=== PATIENT | male | born 1960 | race Two or more races ===

== ENCOUNTER 2017-01-20 19:47 | Emergency (ER) | payer OTHER ==
[~2017-01-20] VITALS: Ht 167.6 cm; Wt 154.2 kg
[2017-01-20 19:47] VITALS: BP 150/80
[~2017-01-20 19:47] MED LIST: ASPI1TAB; DICL75TA5; DULO60CA45
[2017-01-20] MEDS ORDERED: ALBUTEROL FS 2.5 MG/3 ML VIAL.NEB ONE (20:53)
[2017-01-20] MEDS ORDERED: IPRATROPIUM NEB FS 0.5 MG/2.5 ML AMPUL.NEB ONE (20:53)
--- NOTE | 2017-01-20 20:55 | NUR ---
ONGOING BREATHING TREATMENT BY RT WARREN.
[2017-01-20] MEDS ORDERED: predniSONE 20 MG TABLET ONE (20:57)
[2017-01-20] MEDS ORDERED: ALBUTEROL FS 2.5 MG/3 ML VIAL.NEB CONTNEB ONE (21:00)
[2017-01-20] MEDS ORDERED: predniSONE 20 MG TABLET PO ONE (21:00)
[2017-01-20] MEDS ORDERED: IPRATROPIUM NEB FS 0.5 MG/2.5 ML AMPUL.NEB NEB ONE (21:00)
== END 2017-01-20 21:40 | disposition home or self-care (01) ==
LOC: ER 19:48
DX: R05 Cough (principal); E11.9 Type 2 diabetes mellitus without complications; E66.01 Morbid (severe) obesity due to excess calories; F17.210 Nicotine dependence, cigarettes, uncomplicated; F32.9 Major depressive disorder, single episode, unspecified; F41.9 Anxiety disorder, unspecified; I10 Essential (primary) hypertension; Z79.82 Long term (current) use of aspirin
CPT/HCPCS: 71010; 94640 ×2; 99284; A4606; J7512; Z7610

== ENCOUNTER 2017-09-18 00:54 | Emergency (ER) | payer OTHER ==
[~2017-09-18] VITALS: Ht 165.1 cm; Wt 204.1 kg
[~2017-09-18 00:54] MED LIST changes: +ASPI-1165
[2017-09-18 01:30] VITALS: BP 126/70
--- NOTE | 2017-09-18 02:10 | NUR ---
RADIOLOGY AT BEDSIDE FOR EVAL.
[2017-09-18] MEDS ORDERED: oxyCODONE/APAP (5/325 MG) 1 UDTAB TABLET ONE (02:25)
[2017-09-18] MEDS ORDERED: oxyCODONE/APAP (5/325 MG) 1 UDTAB TABLET PO ONE (02:30)
== END 2017-09-18 02:52 | disposition home or self-care (01) ==
LOC: ER 00:54
DX: M25.562 Pain in left knee (principal); S80.02XA Contusion of left knee, initial encounter; S80.01XA Contusion of right knee, initial encounter; S20.212A Contusion of left front wall of thorax, initial encounter; I10 Essential (primary) hypertension; E11.9 Type 2 diabetes mellitus without complications; F41.9 Anxiety disorder, unspecified; F32.9 Major depressive disorder, single episode, unspecified; G89.29 Other chronic pain; Z79.82 Long term (current) use of aspirin; W18.39XA Other fall on same level, initial encounter; Y93.E1 Activity, personal bathing and showering; Y92.89 Other specified places as the place of occurrence of the external cause; Y99.8 Other external cause status
CPT/HCPCS: 71045-TC; 73564-TC; 82962-TC; A4606; Z7610

== ENCOUNTER 2017-10-02 23:19 | Emergency (ER) | payer OTHER ==
[~2017-10-02] VITALS: Ht 165.1 cm; Wt 204.1 kg
[2017-10-02 23:50] VITALS: BP 124/66
--- NOTE | 2017-10-03 01:31 | NUR ---
Patient does not wish to proceed with medical care recommended by Dr. BONDS ). Patient given information related to possible complications, up to and including , which could occur as a result of leaving the hospital at this time. Patient verbalizes understanding of risks involved due to leaving against medical advice. Patient has signed AMA form. VSS UPON DISCHARGE
== END 2017-10-03 01:50 | disposition home or self-care (01) ==
LOC: ER 23:19
DX: S22.42XA Multiple fractures of ribs, left side, initial encounter for closed fracture (principal); I10 Essential (primary) hypertension; G89.29 Other chronic pain; F41.9 Anxiety disorder, unspecified; F32.9 Major depressive disorder, single episode, unspecified; E11.9 Type 2 diabetes mellitus without complications; Z79.82 Long term (current) use of aspirin; W18.2XXA Fall in (into) shower or empty bathtub, initial encounter; Y93.89 Activity, other specified; Y92.89 Other specified places as the place of occurrence of the external cause; Y99.8 Other external cause status
CPT/HCPCS: 71100; 99284; A4606; Z7610

== ENCOUNTER 2017-10-15 18:07 | Emergency (ER) | payer OTHER ==
[~2017-10-15] VITALS: Ht 170.2 cm; Wt 153.3 kg
--- NOTE | 2017-10-15 18:12 | NUR ---
AAOX3, CAME TO ER BED 01 VIA CANE C/O LEFT RIB CAGE PAIN S/P SLIPPED AND FELL THIS AM TO HIS LEFT SIDE, -KO. SKIN IS WARM AND DRY. AWAITING MD FOR EVAL.
[2017-10-15] MEDS ORDERED: IBUPROFEN 400 MG TABLET PO ONE (18:30)
[2017-10-15] MEDS ORDERED: IBUPROFEN 400 MG TABLET ONE (19:07)
[2017-10-15 19:24] VITALS: BP 145/90
--- NOTE | 2017-10-15 19:24 | NUR ---
PT OK TO DISCHARGE PER DR ARROYO. Patient discharged to home in stable condition. Written and verbal after care instructions given. Patient verbalizes understanding of instruction.Patient is awake and alert to self, day, and place. PT ambulatory with a steady gait
== END 2017-10-15 19:25 | disposition home or self-care (01) ==
LOC: ER 18:10
DX: S22.42XA Multiple fractures of ribs, left side, initial encounter for closed fracture (principal); R07.89 Other chest pain; I10 Essential (primary) hypertension; E11.9 Type 2 diabetes mellitus without complications; F41.9 Anxiety disorder, unspecified; G89.29 Other chronic pain; F32.9 Major depressive disorder, single episode, unspecified; F17.200 Nicotine dependence, unspecified, uncomplicated; Z79.82 Long term (current) use of aspirin; W01.10XA Fall on same level from slipping, tripping and stumbling with subsequent striking against unspecified object, initial encounter; Y93.89 Activity, other specified; Y92.89 Other specified places as the place of occurrence of the external cause; Y99.8 Other external cause status
CPT/HCPCS: 71046; A4606; Z7610

== ENCOUNTER 2018-10-31 01:16 | Inpatient (IN) | payer OTHER ==
[~2018-10-31] VITALS: Ht 170.2 cm; Wt 155.1 kg
--- NOTE | 2018-10-31 01:50 | NUR ---
BIBSELF FROM HOME. TO ER BED. AAOX4. AMBULATORY WITH A CANE. NO RESP DISTRESS NOTED, BREATHING EVEN AND UNLABORED. C/O R MID BACL BLISTER THAT STARTED ON SUNDAY. PT REPORTS THAT BLISTER RAPTURED YESTERDAY. NO DRAINAGE. NO BLEEDING. REDNESS SOLOMON WOUND NOTED. MD AT BEDSIDE. AWAITING ORDERS
[2018-10-31] MEDS ORDERED: VANCOMYCIN 1 GM in IV D5W 250 ML IV ONE (02:00)
--- NOTE | 2018-10-31 02:00 | NUR ---
WOUND CULTURE COLLECTED AND SENT TO THE LAB. AREA WAS COVERED W/ DD.
[2018-10-31] MEDS ORDERED: VANCOMYCIN 1 GM VIAL ONE ×2 (02:07→05:35)
[2018-10-31 02:23] LABS: EOSINOPHILS % (AUTO) 5.9 % (0.0-6.0); HEMATOCRIT 39 % (39-51); LYMPHOCYTES # (AUTO) 1.8 /CMM (0.8-4.8); LYMPHOCYTES % (AUTO) 35.2 % (20.0-44.0); MEAN CORPUSCULAR HGB CONC 33 g/dl (31.0-36.0); MEAN CORPUSCULAR VOLUME 98 fL (80-96); MONOCYTES # (AUTO) 0.5 /CMM (0.1-1.30); MONOCYTES % (AUTO) 9.7 % (2.0-12.0); NEUTROPHILS # (AUTO) 2.4 /CMM (1.8-8.9); NEUTROPHILS % (AUTO) 48.2 % (43.0-81.0); PLATELET COUNT (AUTO) 129 /CMM (150-450); RED BLOOD CELL COUNT(AUTO) 3.99 MIL/uL (4.5-6.0)
[2018-10-31 02:32] LABS: CALCIUM, SERUM 8.4 mg/dL (8.5-10.1); CREATININE 0.7 mg/dL (0.6-1.3)
--- NOTE | 2018-10-31 02:52 | NUR ---
BED ASSIGNMENT 204-1
--- NOTE | 2018-10-31 02:58 | NUR ---
BED ASSIGNMENT CHANGED TO 313-1
--- NOTE | 2018-10-31 03:20 | NUR ---
REPORT GIVEN TO SERGIO ON THIRD FLOOR
[2018-10-31] MEDS ORDERED: ALPR2TAB2 PO (03:32)
[2018-10-31] MEDS ORDERED: METF-442 PO (03:32)
--- NOTE | 2018-10-31 03:33 | NUR ---
MED RECON WAS UPDATED. PER PT'S STATEMENT HE'S NOT TAKING ASA ANYMORE AND HE TAKES XANAX PRN AND METFORMIN FOR DM.
--- NOTE | 2018-10-31 03:48 | NUR ---
Patient is resting comfortably in bed with eyes closed. Easily aroused. VSS
[2018-10-31] MEDS ORDERED: MAGNESIUM HYDROXIDE 30 ML UDC PO PRN (04:00)
[2018-10-31] MEDS ORDERED: MAG HYDROX/AL HYDROX/SIMETH 30 ML UDC PO PRN (04:00)
[2018-10-31] MEDS ORDERED: Z GUARD REMEDY 2 OZ OINT TP PRN (04:00)
[2018-10-31] MEDS ORDERED: DEXTROSE 50%-WATER 50 ML DISP.SYRIN IV PRN (04:00)
[2018-10-31] MEDS ORDERED: ACETAMINOPHEN 325 MG TABLET PO PRN (04:00)
[2018-10-31] MEDS ORDERED: ONDANSETRON HCL/PF 4 MG/2 ML VIAL IVP PRN (04:00)
[2018-10-31] MEDS ORDERED: ZOLPIDEM TARTRATE 5 MG TABLET PO PRN (04:00)
[2018-10-31 04:30] VITALS: BP 138/80
[2018-10-31] MEDS ORDERED: ALPRAZOLAM 1 MG TABLET PO PRN (04:30)
[2018-10-31] MEDS ORDERED: VANCOMYCIN 1 GM in IV D5W 250ml IV ONE ×2 (04:30→06:00)
--- NOTE | 2018-10-31 04:35 | NUR ---
ADMISSION NOTE PATIENT ARRIVED TO FLOOR. PATIENT BEING ADMITTED FOR CELLULITIS. VANCOMYCIN 1 GM MISSED DOSE BECAUSE HE RECENTLY RECIEVED 1GM IN ER. PATIENT ORIENTED TO ROOM. BED DOWN LOCKED. CALL LIGHT WITHIN REACH.
--- NOTE | 2018-10-31 04:36 | NUR ---
pt was transferred to 313- in stable condition under acls protocole
--- NOTE | 2018-10-31 06:30 | NUR ---
2ND DOSE OF VANCO 1GM GIVEN. PHARMACY CALLED AND STATED THAT D/T PATIENTS WEIGHT HE SOULD BE GIVEN ANOTHER GRAM OF VANCO 1GM AND ARE AWARE THAT PATIENT GOT 1 GRAM IN ER. VANCO ADMINISTERED ORDERED.
[2018-10-31] MEDS: BLOOD SUGAR DIAGNOSTIC 1 EACH STRIP VI SCH ×4 (06:50→22:23)
[2018-10-31 08:00] VITALS: BP 144/92
--- NOTE | 2018-10-31 08:00 | NUR ---
MS RN NOTE RECEIVED PATIENT ALERT AND ORIENTED X4.VERBALLY RESPONSIVE.AMBULATES WITH ASSIST. IV H/L INTACT TO RT AC. SEEN BY WOUND RN BINDER TECHNICIAN,FAHEEM. C/O RT LOWER BACK BLISTER PAIN.PAIN MGT DONE WITH EFFECTIVE RESULT.WITH TX ORDERS CARRIED OUT. BED DOWN LOCKED. CALL LIGHT WITHIN REACH.
[2018-10-31] MEDS: DULOXETINE HCL 30 MG CAPSULE.DR PO SCH (08:47)
[2018-10-31] MEDS: HYDROCODONE/APAP 5/325MG 1 EACH TABLET PO PRN (08:48)
[2018-10-31] MEDS: ENOXAPARIN SODIUM 40 MG/0.4 ML DISP.SYRIN SQ SCH (08:49)
--- NOTE | 2018-10-31 10:06 | NUR ---
WOUND CARE CONSULT PATIENT SEEN AND PATIENT PRESENTS WITH OPEN BLISTER WITH SEROUS DRNG AND INDURATION TO THE RIGHT LOWER BACK REGION POA. PATIENT DISCUSSED WITH PRIMARY MD, TREATMENT RECOMMENDATIONS MADE AND MD IN AGREEMENT. WILL DEFER SURGICAL CONSULT TO MD PENDING CT RESULTS. PATIENT WITH CHELSEA AT 21, ALL DISCUSSED WITH NURSING STAFF AT THE BEDSIDE. WILL SEE PRN. Addendum: 10/31/18 at 1014 by ANNETTE MELENDEZ WNDNU Amended: Links added.
[2018-10-31] MEDS ORDERED: IV NS 0.9% 250 ML IV ONE (10:28)
[2018-10-31] MEDS ORDERED: CT SWABBABLE VALVE TRANS SET 1 EA INFUS.SET MC ONE (10:28)
[2018-10-31] MEDS ORDERED: IOHEXOL-300 100 ML VIAL IV ONE (10:28)
[2018-10-31] MEDS: IV 1/2NS 1000 ML 1,000 ML IV PRN (10:57)
[2018-10-31] MEDS ORDERED: FEE PK DOSING 1 MIN EA MC ONE (11:32)
[2018-10-31] MEDS: INSULIN REGULAR, HUMAN 100 UNIT/ML 3 ML VIAL SQ PRN ×2 (13:30→22:33)
[2018-10-31 15:30] VITALS: BP 119/73
--- NOTE | 2018-10-31 16:10 | NUR ---
Met with patient at bedside, he is morbidly obese. He lives locally with his girlfriend. He ambulates with a cane and uses a walker at times. Has adequate DME: cane, walker,shower chair and commode. States he had rehab at [facility] x6 months in the past. His pcp is Dr. Misty Tripp at [facility]. His girlfriend will provide ride when discharge. Addendum: 10/31/18 at 2023 by TAMMY CHAPPELL RN Amended: Links added.
[2018-10-31] MEDS: VANCOMYCIN 1.5 GM in IV D5W 500 ML IV SCH (17:39)
[2018-10-31] MEDS ORDERED: VANCOMYCIN 1.25 GM in IV D5W 500 ML IV SCH (18:00)
--- NOTE | 2018-10-31 18:46 | NUR ---
PT SITTING IN BED WATCHING TV WITH ONGOING IVF OF 1/2 NS AT 80 ML/HR INFUSING WELL TO RT AC.PAIN MGT OF NORCO PRN FOR BACK BLISTER IS EFFECTIVE.WOUND TX DONE ORDERED.DENIES ANY DISTRESS.INSTRUCTED TO TURN AND REPOSITION AND SKIN MANAGEMENT TEACHING GIVEN.CALL LIGHT PLACED WITHIN REACH.
--- NOTE | 2018-10-31 19:15 | NUR ---
MS SHAYNE INITIAL NOTES RECEIVED REPORT FROM AM NURSE AND SEEN PT IN BED AWAKE WATCHING TV AT THIS TIME ,DENIES ANY PAIN OR ANY DISCOMFORT IVF STILL INFUSING ON HIS RIGHT FOREARM PATENT AND INTACT. CHECKED HIS BACK AND SEEN MEPILEX ALMOST REMOVED FROM HIS BACK. DID SOME WOUND CARE AND COVERED WITH MEPILEX ORDERED. KEPT HIM WARM AND COMFORTABLE AT ALL TIMES. PT AWARE HOW TO USE THE CALL LIGHT BUT I ENCOURAGE HIM TO USE IF HE NEEDS SOME HELPED. WILL CONTINUE MONITORING.
[2018-10-31 20:00] VITALS: BP 142/93
[2018-10-31] MEDS ORDERED: GLIM4TAB PO (21:04)
[2018-10-31] MEDS ORDERED: BENA1TAB71 PO (21:05)
[2018-10-31] MEDS ORDERED: PIOG45TA5 PO (21:05)
--- NOTE | 2018-10-31 22:30 | NUR ---
MS SHAYNE NOTES BLOOD SUGAR CHECKED DONE 133, 2 UNITS OF INSULIN IAN SQ ORDERED IN DIFF SITE. SNACKS ALSO SERVED. NO SIGNS OF HYPO HYPER GLYCEMIA NOTED. WILL CONTINUE MONITORING. PLACE CALL LIGHT AT REACH.
--- NOTE | 2018-11-01 | NUR ---
ms capping machine operator notes pt sleeping comfortably in bed without any distress noted. respiration even and non labored. ivf still infusing, kept him warm and comfortable at all times. place call light at reach.
--- NOTE | 2018-11-01 02:00 | NUR ---
ms sandrita notes pt asleep without any distress noted.
[2018-11-01 06:21] LABS: BASOPHILS % (AUTO) 0.9 % (0.0-2.0); EOSINOPHILS % (AUTO) 6.2 % (0.0-6.0); HEMATOCRIT 36 % (39-51); HEMOGLOBIN 12.2 g/dL (13.5-17.5); LYMPHOCYTES # (AUTO) 1.5 /CMM (0.8-4.8); LYMPHOCYTES % (AUTO) 39.2 % (20.0-44.0); MEAN CORPUSCULAR HGB CONC 34 g/dl (31.0-36.0); MEAN CORPUSCULAR VOLUME 97 fL (80-96); MONOCYTES # (AUTO) 0.4 /CMM (0.1-1.30); MONOCYTES % (AUTO) 10.1 % (2.0-12.0); NEUTROPHILS # (AUTO) 1.6 /CMM (1.8-8.9); NEUTROPHILS % (AUTO) 43.6 % (43.0-81.0); PLATELET COUNT (AUTO) 113 /CMM (150-450); RED BLOOD CELL COUNT(AUTO) 3.71 MIL/uL (4.5-6.0); WHITE BLOOD COUNT (AUTO) 3.8 K/uL (4.3-11.0)
[2018-11-01] MEDS: BLOOD SUGAR DIAGNOSTIC 1 EACH STRIP VI SCH ×4 (06:30→21:16)
[2018-11-01 06:32] LABS: CALCIUM, SERUM 8.2 mg/dL (8.5-10.1); CREATININE 0.6 mg/dL (0.6-1.3); MAGNESIUM 1.8 mg/dL (1.8-2.4); PHOSPHORUS 3.4 mg/dL (2.5-4.9); POTASSIUM 3.7 mmol/L (3.5-5.1)
[2018-11-01] MEDS: VANCOMYCIN 1.5 GM in IV D5W 500 ML IV SCH ×2 (06:39→17:58)
--- NOTE | 2018-11-01 07:14 | NUR ---
ms engraver flatware closing notes blood sugar checked done 103, no insulin due at this time. vancomycin IVP bag still infusing as ordered. no signs of hypo glycemia noted. all due meds given and all needs met. kept him warm and comfortable at all times. place call light at reach. will endorse to am nurse for continuity of care.
[2018-11-01 08:00] VITALS: BP 146/87
--- NOTE | 2018-11-01 08:00 | NUR ---
MS RN NOTE RECEIVED PATIENT ALERT AND ORIENTED X4.VERBALLY RESPONSIVE.AMBULATES WITH ASSIST. IV H/L INTACT TO RT AC.DENIES PAIN/DISTRESS.PT TEACHING DONE TO TURN SIDE TO SIDE WHILE IN BED.WITH BRP.AMBULATES WITH CANE.WITH TX TO RT LOWER BACK OPEN BLISTER ORDERED. BED DOWN LOCKED. CALL LIGHT WITHIN REACH.
[2018-11-01] MEDS: DULOXETINE HCL 30 MG CAPSULE.DR PO SCH (08:20)
[2018-11-01] MEDS: ENOXAPARIN SODIUM 40 MG/0.4 ML DISP.SYRIN SQ SCH (08:23)
--- NOTE | 2018-11-01 11:28 | NUR ---
INFORMED MARYELLEN WELDON US GUIDED THORACENTESIS ON HOLD DUE TO PATIENT WAS GIVEN LOVENOX TODAY AT 9AM
--- NOTE | 2018-11-01 11:30 | NUR ---
KEITH CALLED SAYING THAT THE US GUIDED THORACENTESIS WILL BE HELD TODAY DUE TO LOVENOX BEING ADMINISTERED THIS MORNING AND WILL BE DONE THIS WEEKEND ONLY FOR EMERGENCY CASE ONLY AND THAT THEY NEED TO BE CALLED OR NOTIFIED BY THE ENDOSCOPY TECHNICAN OTHERWISE, THE US GUIDED THORACENTESIS PROCEDURE WILL BE DONE NOT TILL SUNDAY.
[2018-11-01 12:03] LABS: ALBUMIN 2.6 g/dL (3.4-5.0); BILIRUBIN,DIRECT 0.3 mg/dL (0.0-0.2); BILIRUBIN,TOTAL 0.8 mg/dL (0.2-1.0); TOTAL PROTEIN, SERUM 6.1 g/dL (6.4-8.2)
[2018-11-01] MEDS: INSULIN REGULAR, HUMAN 100 UNIT/ML 3 ML VIAL SQ PRN (12:19)
--- NOTE | 2018-11-01 14:39 | NUR ---
PT'S IV H/L SITE GOT INFILTRATED AND WAS REMOVED.A NEW HEPLOCK HAS BEEN INSERTED TO PT'S LT HAND GAUGE 20.PT TOLERATED WELL.
[2018-11-01 15:50] VITALS: BP 122/58
[2018-11-01] MEDS: IV 1/2NS 1000 ML 1,000 ML IV PRN (15:51)
--- NOTE | 2018-11-01 17:59 | NUR ---
HELD ADMINISTERING THE VANCO IV DUE TO VANCO TROUGH OF 22.
--- NOTE | 2018-11-01 19:07 | NUR ---
PT RESTING IN BED DENYING ANY PAIN OR DISTRESS.CALL LIGHT PLACED WITHIN REACH.
--- NOTE | 2018-11-01 19:21 | NUR ---
NOTIFIED PHARMACY AND SPOKE TO PALOMA FOR VANCO TROUGH OF 22.PALOMA STATED THEY HAVE ADJUSTED THE VANCO IV DOSE FOR TOMORROW -OK TO ADMINISTER IN AM.
--- NOTE | 2018-11-01 19:45 | NUR ---
rn initial notes: received report from ivana salas rn. met with pt and his friend at bed side. pt is a/o x4 on ra respirations even and unlabored. denies any pain or discomfort at this time. iv access patent and flushing well, infusing with 1/2 ns at 80ml/hr. no s/s of iv infiltration noted. pt for us guided thoracentesis, per day rn ivana salas she spoke with payton from [facility] department, informed that pt received lovenox in am, and was told that because pt received lovenox, it needs to wait 12hrs before procedure can be performed. pt aware of the procedure, and given his full consent for the procedure. also per report, pt's vanco trough is 22, per [facility] to give the am dose of vanco iv as it is already adjusted. discussed with pt regarding plan of care tonight. safety precautions for fall initiated, call light in reach, will continue monitoring pt.
[2018-11-01 20:00] VITALS: BP 149/87
--- NOTE | 2018-11-01 21:17 | NUR ---
accu check 125: blood sugar check result is 125, no insulin coverage given per sliding scale
--- NOTE | 2018-11-01 23:34 | NUR ---
rn notes: seen pt sleeping at this time, appears comfortable, no facial grimace noted.
[2018-11-02] MEDS: IV 1/2NS 1000 ML 1,000 ML IV PRN ×2 (04:36→20:18)
[2018-11-02] MEDS: VANCOMYCIN 1.5 GM in IV D5W 500 ML IV SCH ×2 (05:50→23:02)
[2018-11-02] MEDS: BLOOD SUGAR DIAGNOSTIC 1 EACH STRIP VI SCH ×4 (06:09→22:06)
[2018-11-02] MEDS: INSULIN REGULAR, HUMAN 100 UNIT/ML 3 ML VIAL SQ PRN ×3 (06:11→17:06)
--- NOTE | 2018-11-02 06:11 | NUR ---
ACCU CHECK 144: BLOOD SUGAR CHECK 144, 2UNITS OF INSULIN GIVEN PER SLIDING SCALE.
--- NOTE | 2018-11-02 06:41 | NUR ---
RN CLOSING NOTES: PT IN BED, AWAKE, DENIES ANY PAIN OR DISCOMFORT AT THIS TIME, IV ACCESS REMAINS PATENT AND FLUSHING WELL, INFUSING WITH 1/2 NS AT 80ML/HR. PT FOR ULTZ GUIDED THORACENTESIS. CONSENT SECURED. VS REMAINS STABLE, NEEDS ATTENDED. SAFETY PRECAUTIONS FOR FALL REMAINS ENGAGED, CALL LIGHT IN REACH, WILL ENDORSE TO DAY RN FOR CONTINUITY OF CARE.
[2018-11-02 06:55] LABS: CALCIUM, SERUM 8.7 mg/dL (8.5-10.1); CREATININE 0.6 mg/dL (0.6-1.3); POTASSIUM 3.8 mmol/L (3.5-5.1)
--- NOTE | 2018-11-02 08:00 | NUR ---
MS RN AM NOTES: PT IN BED, AWAKE, DENIES ANY PAIN OR DISCOMFORT AT THIS TIME, IV ACCESS REMAINS PATENT AND FLUSHING WELL, INFUSING WITH 1/2 NS AT 80ML/HR. PT FOR PENDING ULTRASOUND GUIDED THORACENTESIS. CONSENT SECURED. VS REMAINS STABLE, SAFETY PRECAUTIONS FOR FALL REMAINS ENGAGED, CALL LIGHT WITHIN REACH,
[2018-11-02 08:40] VITALS: BP 150/76
[2018-11-02] MEDS: DULOXETINE HCL 30 MG CAPSULE.DR PO SCH (08:42)
[2018-11-02] MEDS: HYDROCODONE/APAP 5/325MG 1 EACH TABLET PO PRN ×3 (08:43→23:03)
--- NOTE | 2018-11-02 09:00 | NUR ---
I CALLED RN FATEMEH REGARDING THE THORACENTESIS, AND INFORMED HER THE WE DON'T HAVE A RADIOLOGIST IN HOUSE TODAY AND IF EMERGENCY SHE NEEDS TO PLACE A STAT ORDER, PER RN THE PATIENT HAS NO COMPLAIN / DISTRESS AND HE CAN WAIT TILL SUNDAY
[2018-11-02 15:55] VITALS: BP 143/93
--- NOTE | 2018-11-02 18:48 | NUR ---
PT RESTING IN BED DENYING ANY PAIN OR DISTRESS.WOUND TX DONE ORDERED.WITH ONGOING IVF OF 1/2 NS INFUSING WELL.CALL LIGHT PLACED WITHIN REACH.
--- NOTE | 2018-11-02 19:35 | NUR ---
RN INITIAL NOTES: RECEIVED REPORT FROM FATEMEH Lim RN. PT SITTING, AWAKE, A/O X4, ON RA, RESPIRATIONS EVEN AND UNLABORED. MET WITH FAMILY AT BED SIDE. IV ACCESS PATENT AND FLUSHING WELL, ON , REQUESTED TO BE OFF IVF FOR NOW WHILE VISITORS AROUND. FOR THORACENTESIS ON SUNDAY. DISCUSSED PLAN OF CARE TO PT, AGREED AND UNDERSTAND. SAFETY PRECAUTIONS FOR FALL INITIATED, CALL LIGHT IN REACH, WILL CONTINUE MONITORING PT.
[2018-11-02 20:00] VITALS: BP 141/65
[2018-11-02 20:24] VITALS: BP 141/65
[2018-11-02] MEDS: *INSULIN REGULAR(HUMULIN R)HUM 100 UNIT/ML VIAL SQ PRN (21:28)
--- NOTE | 2018-11-02 21:28 | NUR ---
ACCU CHECK 137: BLOOD SUGAR CHECK 137, 2UNITS OF INSULIN GIVEN PER SLIDING SCALE. WILL CONTINUE TO MONITOR AND REASSESS PT.
--- NOTE | 2018-11-02 23:03 | NUR ---
prn norco: pt c/o 10/23 lower back pain where the blister is, requesting for norco. prn norco 5/325 mg tab po administered to pt at this time, will continue to monitor and reassess pt.
[2018-11-03] MEDS: BLOOD SUGAR DIAGNOSTIC 1 EACH STRIP VI SCH ×4 (06:11→21:56)
--- NOTE | 2018-11-03 06:12 | NUR ---
accu check 121: blood sugar check result is 121, no insulin coverage given per sliding scale
[2018-11-03] MEDS: IV 1/2NS 1000 ML 1,000 ML IV PRN (06:23)
[2018-11-03 06:48] LABS: CALCIUM, SERUM 8.3 mg/dL (8.5-10.1); CREATININE 0.7 mg/dL (0.6-1.3); POTASSIUM 3.1 mmol/L (3.5-5.1)
--- NOTE | 2018-11-03 06:48 | NUR ---
rn closing notes: pt remains on ra respirations even and unlabored, denies any pain or discomfort at this time. iv access remains patent and flushing well, infusing with ivf as ordered. dressing remains in placed, c/d/i. pt awaiting thoracentesis on sunday. vs remains stable, needs attended. safety precautions for fall remains engaged, call light in reach, will endorse to day rn for continuity of care.
--- NOTE | 2018-11-03 07:49 | NUR ---
MS RN OPENING NOTES PATIENT IN BED RESTING COMFORTABLY. PATIENT IN NO ACUTE DISTRESS. NO SOB NOTED. PATIENT BREATHING ON ROOM AIR SATURATING >95% SPO2. PATIENT BREATHING IS EVEN AND UNLABORED. PATIENT ABLE TO VERBALIZE NEEDS, ALERT AND ORIENTED X4. PATIENT URINAL BY BEDSIDE. IV INTACT. SAFETY PRECAUTIONS IN PLACE. PATIENT BED IS LOCKED AND IN LOWEST POSITION. CALL LIGHT WITHIN REACH. WILL CONTINUE TO MONITOR.
[2018-11-03 08:42] VITALS: BP 139/76
[2018-11-03] MEDS: DULOXETINE HCL 30 MG CAPSULE.DR PO SCH (08:53)
[2018-11-03] MEDS: HYDROCODONE/APAP 5/325MG 1 EACH TABLET PO PRN ×2 (09:01→17:38)
[2018-11-03] MEDS: POTASSIUM CHLORIDE 20 MEQ TAB.PRT.SR PO SCH ×2 (11:48→12:34)
[2018-11-03] MEDS: INSULIN REGULAR, HUMAN 100 UNIT/ML 3 ML VIAL SQ PRN ×2 (11:58→17:37)
[2018-11-03 16:23] VITALS: BP 150/85
--- NOTE | 2018-11-03 17:25 | NUR ---
MS RN NOTE PATIENT TOLERATED THORACENTESIS WELL. PATIENT IN NO ACUTE DISTRESS. NO SOB NOTED. SITE CLEANED AND GAUZE BANDAGE INTACT. WILL CONTINUE TO MONITOR.
[2018-11-03] MEDS ORDERED: VANCOMYCIN 1.25 GM in IV D5W 500 ML IV ONE (18:30)
--- NOTE | 2018-11-03 19:15 | NUR ---
MS RN CLOSING NOTE PATIENT IN BED WITH FAMILY AT THE BEDSIDE. PATIENT BREATHING ON ROOM AIR SATURATING >95% SPO2. PATIENT IN NO ACUTE DISTRESS. NO SOB NOTED. PATIENT WAITING ON VANCOMYCIN 1.25 GM FROM PHARMACY. I CALLED PHARMACY AND ASKED IF THEY WANTED ME TO BRAIN WAVE TECHNICIAN THE VANCOMYCIN. THEY TOLD ME THEY WILL SEND IT UP, STILL WAITING FOR VANCOMYCIN AT THIS TIME. CALLED AGAIN NO REPONSE ON THE PHONE. ENDORSED TO JOEL BOJORQUEZ TO FOLLOW UP WITH VANCOMYCIN. ALL NURSING NEEDS MET. PATIENT KEPT CLEAN, DRY, AND COMFORTABLE. PATIENT BED IS LOCKED AND IN LOWEST POSITION. CALL LIGHT WITHIN REACH. ENDORSED CARE TO PM SHIFT FOR LICHA.
--- NOTE | 2018-11-03 20:04 | NUR ---
RN MS OPENING NOTES RECEIVED PATIENT IN BED AWAKE, ALERT AND ORIENTED X4, VERBALLY RESPONSIVE, ABLE TO MAKE NEEDS KNOWN. BREATHING EVEN AND UNLABORED. NO SOB NOTED. TOLERATING ROOM AIR. DENIES ANY PAIN OR DISCOMFORT. NO FACIAL GRIMACING. IV ON LEFT HAND G#22 INTACT AND PATENT WITH IVF INFUSING. SKIN DRY AND WARM TO TOUCH. AFEBRILE. PATIENT IS S/P THORACENTESIS TODAY. PER PATIENT HE FEELS MUCH BETTER AND CAN BREATHE BETTER. ALL OTHER NEEDS ATTENDED TO. SAFETY MEASURES IN PLACE. CALL LIGHT WITHIN REACH. WILL CONTINUE TO MONITOR.
[2018-11-03 20:15] VITALS: BP 151/84
[2018-11-03] MEDS: *INSULIN REGULAR(HUMULIN R)HUM 100 UNIT/ML VIAL SQ PRN (21:57)
[2018-11-04] MEDS: HYDROCODONE/APAP 5/325MG 1 EACH TABLET PO PRN ×3 (00:35→13:40)
[2018-11-04] MEDS: IV 1/2NS 1000 ML 1,000 ML IV PRN (03:28)
[2018-11-04] MEDS: MORPHINE SULFATE INJ 2 MG/ML DISP.SYRIN IV PRN ×2 (03:39→10:01)
[2018-11-04] MEDS ORDERED: VANCOMYCIN 1.25 GM in IV D5W 500 ML IV SCH (06:00)
[2018-11-04] MEDS: BLOOD SUGAR DIAGNOSTIC 1 EACH STRIP VI SCH ×2 (06:35→12:51)
[2018-11-04] MEDS: INSULIN REGULAR, HUMAN 100 UNIT/ML 3 ML VIAL SQ PRN ×2 (06:36→12:53)
[2018-11-04 06:49] LABS: CALCIUM, SERUM 8.3 mg/dL (8.5-10.1); CREATININE 0.6 mg/dL (0.6-1.3); POTASSIUM 3.2 mmol/L (3.5-5.1)
--- NOTE | 2018-11-04 06:53 | NUR ---
RN MS CLOSING NOTES PATIENT RESTING IN BED. NO ACUTE CHANGES THROUGHOUT SHIFT. BREATHING EVEN AND UNLABORED. NO SOB NOTED. TOLERATING ROOM AIR. DENIES ANY PAIN OR DISCOMFORT AT THE MOMENT. IV ON LEFT HAND G#22 INTACT AND PATENT WITH IVF INFUSING. ALL OTHER NEEDS MET AND ATTENDED TO. SAFETY MEASURES IN PLACE. CALL LIGHT WITHIN REACH. WILL ENDORSE TO ONCOMING NURSE FOR LICHA.
--- NOTE | 2018-11-04 07:49 | NUR ---
MS RN OPENING NOTE PATIENT IN BED RESTING BREATHING ON ROOM AIR. PATIENT IN NO ACUTE DISTRESS. NO SOB NOTED. PATIENT BREATHING IS EVEN AND UNLABORED. PATIENT VERBALIZES NEEDS, NEEDS AND CONCERNS ADDRESSED. PATIENT COMPLAINS OF NO PAIN AT THIS TIME. SAFETY PRECAUTIONS IN PLACE. PATIENT BED IS LOCKED AND IN LOWEST POSITION. CALL LIGHT WITHIN REACH. WILL CONTINUE TO MONITOR.
[2018-11-04 08:00] VITALS: BP 121/69
[2018-11-04] MEDS: DULOXETINE HCL 30 MG CAPSULE.DR PO SCH (10:00)
[2018-11-04] MEDS: POTASSIUM CHLORIDE 20 MEQ TAB.PRT.SR PO SCH ×2 (10:00→10:56)
[2018-11-04 16:00] VITALS: BP 135/79
--- NOTE | 2018-11-04 16:46 | NUR ---
MS MATERIALS ENGINEER NOTE PATIENT MEDICALLY STABLE. PATIENT VITAL SIGNS WNL. PATIENT IN NO ACUTE DISTRESS. PATIENT BREATHING IS EVEN AND UNLABORED. NO SOB NOTED. PATIENT STATES NO PAIN AT THIS TIME. DC INSTRUCTIONS PROVIDED. PATIENT VERBALIZES UNDERSTANDING. PATIENT BELONGINGS LIST SIGNED AND IN CHART. PATIENT SKIN ASSESSED. NO NEW SKIN BREAKDOWN NOTED. DC PACKET GIVEN TO PATIENT. PATIENT HAS BELONGINGS WITH HIM. ID BAND REMOVED. IV REMOVED. PATIENT KEPT CLEAN, DRY, AND COMFORTABLE. WOUND CARE PROVIDED DURING MY SHIFT. ALL NURSING NEEDS MET. ACCOMPANIED PATIENT, LEFT BY WHEELCHAIR WITH TO CAR GOING BACK HOME. MD AWARE OF DISCHARGE.
== END 2018-11-04 16:40 | disposition home or self-care (01) | DRG 383 ==
LOC: ER 01:16 → TELE 03:59 → MED 05:44
PROVIDERS: ADMIT Internal Medicine; ATTEND Internal Medicine
DX: L03.312 Cellulitis of back [any part except buttock and flank] (principal); J90 Pleural effusion, not elsewhere classified; K76.6 Portal hypertension; E66.01 Morbid (severe) obesity due to excess calories; Z68.43 Body mass index [BMI] 50.0-59.9, adult; K74.60 Unspecified cirrhosis of liver; E11.9 Type 2 diabetes mellitus without complications; I10 Essential (primary) hypertension; F41.9 Anxiety disorder, unspecified; F32.9 Major depressive disorder, single episode, unspecified; M25.562 Pain in left knee; M25.561 Pain in right knee; Z98.890 Other specified postprocedural states; Z79.82 Long term (current) use of aspirin; Z79.84 Long term (current) use of oral hypoglycemic drugs; Z79.899 Other long term (current) drug therapy; F17.200 Nicotine dependence, unspecified, uncomplicated; Z86.19 Personal history of other infectious and parasitic diseases
CPT/HCPCS: 36415; 71045-TC; 76942-TC; 80048-TC; 80076-TC; 80202-TC; 82962-TC; 83605-TC; 83735-TC; 84100-TC; 85025-TC; 85730-TC; 87040-TC; 87070-TC; 87081-TC; 87186-TC; 87340; 89051-TC; G0378; J1650; J1815; J2270; J3370; J3490; J7030; J7050; J7060; Q9967

== ENCOUNTER 2019-01-11 06:16 | Inpatient (IN) | payer OTHER ==
[~2019-01-11] VITALS: Ht 170.2 cm; Wt 157.4 kg
[~2019-01-11 06:16] MED LIST changes: +ALPR2TAB2 PO; -ASPI-1165; -ASPI1TAB; +BENA1TAB71 PO; -DULO60CA45; +DULO60CA45 PO; +GLIM4TAB PO; +METF-442 PO; +PIOG45TA5 PO
--- NOTE | 2019-01-11 06:22 | NUR ---
PT BIBRA C/C "GLF ON R SHOULDER. BACK PAIN" -SOB. VSS. -TRAUMA NOTED. PT AOX4. RESP EVEN AND UNLABORED. PT ON MONITOR IN BED 3. WILL CONTINUE TO MONITOR.
[2019-01-11] MEDS ORDERED: IV NS 0.9% 500 ML BAG IV ONE (06:30)
[2019-01-11 07:01] LABS: BASOPHILS % (AUTO) 0.7 % (0.0-2.0); EOSINOPHILS % (AUTO) 1.3 % (0.0-6.0); HEMATOCRIT 41 % (39-51); HEMOGLOBIN 14.1 g/dL (13.5-17.5); LYMPHOCYTES # (AUTO) 0.9 /CMM (0.8-4.8); LYMPHOCYTES % (AUTO) 16.9 % (20.0-44.0); MEAN CORPUSCULAR HGB CONC 34 g/dl (31.0-36.0); MEAN CORPUSCULAR VOLUME 96 fL (80-96); MONOCYTES # (AUTO) 0.4 /CMM (0.1-1.30); MONOCYTES % (AUTO) 7.5 % (2.0-12.0); NEUTROPHILS # (AUTO) 3.7 /CMM (1.8-8.9); NEUTROPHILS % (AUTO) 73.6 % (43.0-81.0); PLATELET COUNT (AUTO) 104 /CMM (150-450); RED BLOOD CELL COUNT(AUTO) 4.31 MIL/uL (4.5-6.0); WHITE BLOOD COUNT (AUTO) 5.1 K/uL (4.3-11.0)
[2019-01-11 07:10] LABS: CALCIUM, SERUM 8.7 mg/dL (8.5-10.1); CARBON DIOXIDE 30 mmol/L (21-32); CHLORIDE 102 mmol/L (98-107); CREATININE 0.6 mg/dL (0.6-1.3); GLUCOSE 156 mg/dL (74-106); POTASSIUM 3.8 mmol/L (3.5-5.1); SODIUM SERUM 140 mmol/L (136-145); UREA NITROGEN, BLOOD 10 mg/dL (7-18)
[2019-01-11 07:22] LABS: B-TYPE NATRIURETIC PEPTIDE 230 PG/ML (0-125)
--- NOTE | 2019-01-11 07:30 | NUR ---
PATIENT A/OX4, NO DISTRESS NOTED, KEPT COMFORTABLE.
[2019-01-11] MEDS ORDERED: MULT-447 PO (08:58)
[2019-01-11] MEDS ORDERED: GABA-534 PO (08:58)
--- NOTE | 2019-01-11 09:06 | NUR ---
[facility] PAGED
[2019-01-11] MEDS ORDERED: ACETAMINOPHEN 325 MG TABLET PO PRN (12:30)
[2019-01-11] MEDS ORDERED: DEXTROSE 50%-WATER 50 ML DISP.SYRIN IV PRN (12:30)
[2019-01-11] MEDS ORDERED: ONDANSETRON HCL/PF 4 MG/2 ML VIAL IVP PRN (12:30)
[2019-01-11] MEDS ORDERED: Z GUARD REMEDY 2 OZ OINT TP PRN (12:30)
--- NOTE | 2019-01-11 12:45 | NUR ---
RN ADMITTING NOTES ADMITTED A 58 Y/O, MALE TO UNIT VIA GURNEY ACCOMPANIED BY E.R STAFF. A/O X4. ABLE TO MAKE NEEDS KNOWN. PATIENT ORIENTED TO UNIT, STAFF AND ROOM. ON RA, BREATHING EVEN AND UNLABORED. V/S TAKEN AND RECORDED. PHYSICAL ASSESSMENT DONE. PHOTOS OF SKIN ISSUES TAKEN AND FILED ON CHART. PATIENT IV ACCESS ON LEFT HAND #20, PATENT AND INTACT. SAFETY MEASURES IN PLACE, BED IN LOW LOCKED POSITION WITH SIDE RAILS UP X 2. CALL LIGHT WITHIN EASY REACH. WILL CONTINUE TO MONITOR.
--- NOTE | 2019-01-11 12:47 | NUR ---
[facility], NO DISTRESS NOTED.
[2019-01-11 13:00] VITALS: BP 158/89
[2019-01-11] MEDS ORDERED: IV NS 0.9% 500 ML IV ONE (13:00)
[2019-01-11] MEDS: BLOOD SUGAR DIAGNOSTIC 1 EACH STRIP IN SCH ×3 (13:21→22:00)
[2019-01-11] MEDS: IV NS 0.9% 1,000 ML IV PRN ×2 (13:23→23:52)
[2019-01-11] MEDS: HYDROCODONE/APAP 10/325MG 1 EA TABLET PO PRN ×2 (13:44→17:46)
[2019-01-11 16:00] VITALS: BP 153/85
[2019-01-11] MEDS: INSULIN REGULAR, HUMAN 100 UNIT/ML 3 ML VIAL SQ PRN (17:52)
--- NOTE | 2019-01-11 18:40 | NUR ---
MS RN CLOSING NOTES PATIENT IN BED RESTING COMFORTABLY. A/O X 4. ON RA, TOLERATING WELL. IV FLUIDS ON LEFT HAND #20 WITH NS @100ML/HR, PATENT AND INTACT. SAFETY MEASURES IN PLACE, BED IN LOW LOCKED POSITION WITH SIDE RAILS UP X 2. CALL LIGHT WITHIN EASY REACH. WILL ENDORSED TO CLAY ARTIST NURSE FOR LICHA.
--- NOTE | 2019-01-11 18:54 | NUR ---
MS RN NOTES SEEN AND EXAMINED BY DR. TEAGUE WITH NEW ORDERS OF MORPHINE 4MG IV Q4H. ORDERS MADE AND CARRIED OUT.
[2019-01-11 20:00] VITALS: BP 153/92
[2019-01-11] MEDS: MORPHINE SULFATE INJ 4 MG/ML DISP.SYRIN IV PRN (21:37)
[2019-01-12] MEDS: MORPHINE SULFATE INJ 4 MG/ML DISP.SYRIN IV PRN ×4 (00:51→12:39)
[2019-01-12] MEDS: HYDROCODONE/APAP 10/325MG 1 EA TABLET PO PRN ×3 (03:30→15:05)
[2019-01-12] MEDS: BLOOD SUGAR DIAGNOSTIC 1 EACH STRIP IN SCH ×4 (06:29→21:30)
[2019-01-12 07:07] LABS: BASOPHILS % (AUTO) 0.3 % (0.0-2.0); HEMATOCRIT 37 % (39-51); LYMPHOCYTES # (AUTO) 1.4 /CMM (0.8-4.8); LYMPHOCYTES % (AUTO) 28.4 % (20.0-44.0); MEAN CORPUSCULAR HGB CONC 35 g/dl (31.0-36.0); MEAN CORPUSCULAR VOLUME 95 fL (80-96); MONOCYTES # (AUTO) 0.4 /CMM (0.1-1.30); MONOCYTES % (AUTO) 8.9 % (2.0-12.0); NEUTROPHILS % (AUTO) 61.4 % (43.0-81.0); PLATELET COUNT (AUTO) 86 /CMM (150-450); RED BLOOD CELL COUNT(AUTO) 3.92 MIL/uL (4.5-6.0); WHITE BLOOD COUNT (AUTO) 4.9 K/uL (4.3-11.0)
[2019-01-12 07:19] LABS: THYROID STIMULATING HORMONE 2.999 uIU/mL (0.358-3.74)
[2019-01-12 07:35] LABS: ALBUMIN 2.6 g/dL (3.4-5.0); BILIRUBIN,TOTAL 1.4 mg/dL (0.2-1.0); CALCIUM, SERUM 8.1 mg/dL (8.5-10.1); CREATININE 0.5 mg/dL (0.6-1.3); PHOSPHORUS 2.6 mg/dL (2.5-4.9); TOTAL PROTEIN, SERUM 6.1 g/dL (6.4-8.2)
--- NOTE | 2019-01-12 08:00 | NUR ---
RN NOTES RECEIVED PATIENT IN THE BED A/O X4, PATIENT OBESE, NO ACUT RESPIRATORY DISTRESS, PATIENT WAS COMPLAINING OF PAIN ON RIGHT SHOULDER. PATIENT STATE "MEDICATION LOOKS NOT WORKING FOR PAIN STILL IN THE PAIN". V/S TAKEN STABLE, ASSIST PATIENT TURN AND REPOSTION Q 2 HR, KEEP RIGHT SHOULDER IMMOBILE. WAITING FOR ORTHO CONSULTATION. PATIENT TOLERATED BREAKFAST WELL, CALL LIGHT WITHIN TO REACH, SAFETY PRECAUTION MAINTAINED ALL THE TIME.
[2019-01-12 08:35] LABS: MAGNESIUM 1.2 mg/dL (1.8-2.4)
--- NOTE | 2019-01-12 08:50 | NUR ---
RN NOTES GET CALL FROM LAB FOR CRITICAL MG 1.2, , CALLED HOSPITALIST DR PATRICIA TEAGUE AND LEFT MASSAGE FOR ORDER. CONTINUED MONITORING.
--- NOTE | 2019-01-12 09:17 | NUR ---
RN NOTES ADMINISTERED NARCO 10/325 MG PO PRN FOR RIGHT SHOULDER PAIN 12/24 PER PATIENT REQUEST, V/S TAKEN BP 151/88, P-82, R-18, CONTINUED MONITORING. ALSO BISHOP BENITES WITH THE PATIENT AT THIS TIME.
--- NOTE | 2019-01-12 09:37 | NUR ---
RN NOTES GET CALL BACK FROM DNP PATRICIA TEAGUE GET TO ORDER MG 4 gm'S, AND K-DUR 40 MEQ X1 , ORDER TAKEN AND CARRIED OUT.
[2019-01-12] MEDS ORDERED: POTASSIUM CHLORIDE 20 MEQ TAB.PRT.SR PO SCH (10:00)
[2019-01-12] MEDS ORDERED: Magnesium 1GM/D5W 100ML PREMIX PIGGYBACK IV ONE (10:00)
[2019-01-12] MEDS: Magnesium 1GM/D5W 100ML PREMIX 100 ML IV SCH ×4 (10:20→15:03)
[2019-01-12 11:16] LABS: LYMPHOCYTES % (MANUAL) 21 % (16-48); MONOCYTES % (MANUAL) 3 % (0-11.0); NEUTROPHILS % (MANUAL) 76 (42-76)
--- NOTE | 2019-01-12 12:39 | NUR ---
RN NOTES ADMINISTERED MORPHINE SULFATE 4 MG/ML IV PUSH FOR RIGHT SHOULDER PAIN 01/23 PER PATIENT REQUEST, V/S TAKEN BP- 160/92, P82, CONTINUED MONITORING . BS-186 MG/DL COVERAGE GIVEN.
[2019-01-12] MEDS: INSULIN REGULAR, HUMAN 100 UNIT/ML 3 ML VIAL SQ PRN ×3 (12:58→21:30)
--- NOTE | 2019-01-12 15:05 | NUR ---
RN NOTES ADMINISTERED NARCO 10/325 MG PO PRN FOR RIGHT SHOULDER PAIN 11/23 PER PATIENT REQUEST, V/S TAKEN BP-142/86, P-88, CONTINUED MONITORING.
[2019-01-12 16:00] VITALS: BP 152/82
[2019-01-12] MEDS ORDERED: HYDROMORPHONE 1 MG/1 ML DISP.SYRIN IV PRN (16:00)
--- NOTE | 2019-01-12 16:14 | NUR ---
RN NOTES ADMINISTERED DILAUDID 0.5 MG PO PRN FOR RIGHT SHOULDER PAIN / PER PATIENT REQUEST, V/S TAKEN BP 152/82, P-83, CONTINUED MONITORING.
[2019-01-12] MEDS: IV NS 0.9% 1,000 ML IV PRN (16:55)
[2019-01-12] MEDS: HYDROMORPHONE 1 MG/1 ML DISP.SYRIN IV PRN ×3 (18:18→22:22)
--- NOTE | 2019-01-12 18:18 | NUR ---
RN NOTES ADMINISTERED DILAUDID 1 MG /ML IV PUSH FOR PAIN 01/23 PER PATIENT REQUEST, V/S TAKEN BP 152/82,P-83, R-19, ALSO ADMINISTERED SCHEDULED MEDICATION, BS-150 MG/DL COVERAGE GIVEN. NEEDS ATTENDED AND ANTICIPATED, PATIENT TOLERATED FOOD WELL, ASSIST TURN AND REPOSTION Q 2 HR. INFUSING NS 100 ML/HR ON LEFT UP MIDLINE INTACT, CALL LIGHT WITHIN TO REACH. SAFETY PRECAUTION MAINTAINED ALL THE TIME. ENDORSED ONCOMING NURSE FOLLOW PLAN OF CARE.
--- NOTE | 2019-01-12 19:30 | NUR ---
MS RN NOTE: PATIENT RESTING IN BED, NO ACUTE DISTRESS NOTED. BREATHING EVEN AND UNLABORED, NO SOB NOTE. MIDLINE TO LEFT UPPER ARM IN PLACE, INFUSING NS AT 100ML/HR. BED LOCKED AND IN LOWEST POSITION, CALL LIGHT IN REACH. WILL CONTINUE TO MONITOR.
[2019-01-12 20:06] VITALS: BP 152/74
--- NOTE | 2019-01-12 20:30 | NUR ---
MS RN NOTE: PATIENT COMPLAINS OF PAIN TO RIGHT SHOULDER, DILAUDID 1MG IV GIVEN PER MD ORDER. WILL CONTINUE TO MONITOR
--- NOTE | 2019-01-12 21:30 | NUR ---
MS RN NOTE: PATIENT BLOOD SUGAR LEVEL 132MG/DL, PATIENT REFUSES INSULIN SINCE HE DOES NOT TAKE INSULIN AT HOME AND THAT HE HAS A POOR APPETITE AND NOTE EATING MUCH. EXPLAINED RISK AND BENEFITS, BUT STILL REFUSED. NO S/S OF HYPER/HYPOGLYCEMIA NOTED. WILL CONTINUE TO MONITOR.
--- NOTE | 2019-01-12 22:30 | NUR ---
MS RN NOTE: PATIENT COMPLAINS OF PAIN TO RIGHT SHOULDER 9, DILAUDID 1MG IV GIVEN PER MD ORDER. WILL CONTINUE TO MONITOR
[2019-01-13] MEDS: HYDROMORPHONE 1 MG/1 ML DISP.SYRIN IV PRN ×9 (00:25→22:46)
--- NOTE | 2019-01-13 00:30 | NUR ---
MS RN NOTE: PATIENT COMPLAINS OF PAIN TO RIGHT SHOULDER 9/, DILAUDID 1MG IV GIVEN PER MD ORDER. WILL CONTINUE TO MONITOR.
--- NOTE | 2019-01-13 04:30 | NUR ---
MS RN NOTE: PATIENT COMPLAINS OF PAIN TO RIGHT SHOULDER 9/, DILAUDID 1MG IV GIVEN PER MD ORDER. WILL CONTINUE TO MONITOR.
[2019-01-13] MEDS: IV NS 0.9% 1,000 ML IV PRN ×2 (04:31→16:16)
[2019-01-13] MEDS: BLOOD SUGAR DIAGNOSTIC 1 EACH STRIP IN SCH ×4 (06:51→21:24)
[2019-01-13] MEDS: INSULIN REGULAR, HUMAN 100 UNIT/ML 3 ML VIAL SQ PRN ×4 (06:59→21:29)
--- NOTE | 2019-01-13 07:00 | NUR ---
MS RN NOTE: PATIENT RESTING IN BED, NO ACUTE DISTRESS NOTED. BREATHING EVEN AND UNLABORED, NO SOB NOTE. MIDLINE TO LEFT UPPER ARM IN PLACE, INFUSING NS AT 100ML/HR. PATIENT BLOOD SUGAR LEVEL 153MG/DL, PATIENT TO RECEIVE 2 UNITS OF INSULIN PER SLIDING SCALE, NO S/S OF HYPER/HYPOGLYCEMIA NOTED. PATIENT COMPLAINS OF PAIN TO RIGHT SHOULDER 9/10, DILAUDID 1MG IV GIVEN PER MD ORDER. BED LOCKED AND IN LOWEST POSITION, CALL LIGHT IN REACH. WILL ENDORSE TO DAY NURSE TO CONTINUE WITH PLAN OF CARE.
[2019-01-13 08:00] VITALS: BP 136/83
--- NOTE | 2019-01-13 08:00 | NUR ---
RN NOTES RECEIVED PATIENT IN THE BED A/O X4, PATIENT HAS NO ACUTE RESPIRATORY DISTRESS, V/S STABLE, PATIENT WAS COMPLAINING OF PAIN 6/10 PER PAIN SCALE. PER ORTHO PA ORDERS PATIENT HAS NONDISPLACED RIGHT PROXIMAL FRACTURE, APPLY SLING ON RIGHT ARM, NO WEIGHT BEARING ON RIGHT ARM, SEE Dr BENAVIDEZ IN ONE WEEK. INFUSING NS AT 100 ML/HR ON LEFT UPPER ARM INTACT. ASSIST PATIENT TURN AND REPOSTION Q 2 HR, CALL LIGHT WITHIN TO REACH. SAFETY PRECAUTION MAINTAINED ALL THE TIME.
[2019-01-13 08:04] LABS: CALCIUM, SERUM 7.9 mg/dL (8.5-10.1); CREATININE 0.6 mg/dL (0.6-1.3); MAGNESIUM 1.8 mg/dL (1.8-2.4); POTASSIUM 3.4 mmol/L (3.5-5.1)
--- NOTE | 2019-01-13 09:07 | NUR ---
rn notes administered dilaudid 1 mg/ml iv push for right shoulder pain 11/23 per patient request, v/s taken bp-136/83, p-76.
--- NOTE | 2019-01-13 09:55 | NUR ---
RN NOTES PATIENT WITH PT AT THIS TIME, SLING ON ON RIGHT ARM.
[2019-01-13] MEDS ORDERED: POTASSIUM CHLORIDE 20 MEQ TAB.PRT.SR PO SCH (10:30)
[2019-01-13] MEDS: DULOXETINE HCL 30 MG CAPSULE.DR PO SCH (12:05)
--- NOTE | 2019-01-13 14:37 | NUR ---
RN NOTES ADMINISTERED DILAUDID 1 MG/ML IV PUSH FOR RIGHT SHOULDER PAIN 11/23 PER PATIENT REQUEST, V/D TAKEN BP- 140/80, P-78, CONTINUED MONITORING.
[2019-01-13 16:00] VITALS: BP 151/91
--- NOTE | 2019-01-13 17:10 | NUR ---
RN NOTES PATIENT WAS COMPLAINING OF RIGHT SHOULDER PAIN 9/10 PER PAIN SCALE, ADMINISTERED DILAUDID 1 MG/ML IV PUSH PRESCRIBED, V/S TAKEN BP-151/91, P-96, CONTINUED MONITORING. BS-158 MG/DL COVERAGE GIVEN.
--- NOTE | 2019-01-13 18:30 | NUR ---
RN NOTES PATIENT IN THE BED RESTING, MEDICATION WERE ADMINISTERED FOR PAIN EFFECTIVE, CALL LIGHT WITHIN TO REACH, PATIENT USING URINAL, INFUSING NS AT 100 ML/HR ON LEFT UPPER ARM. ASSIST PATIENT TURN AND REPOSTION Q 2 HR, PATIENT HAS A SLING ON RIGHT ARM. CALL LIGHT WITHIN TO REACH. ENDORSED ONCOMING NURSE FOLLOW PLAN OF CARE.
[2019-01-13 20:41] VITALS: BP 147/80
[2019-01-13] MEDS: ALPRAZOLAM 1 MG TABLET PO SCH (21:24)
[2019-01-13] MEDS ORDERED: GABAPENTIN 300 MG CAPSULE PO SCH (22:00)
--- NOTE | 2019-01-13 22:17 | NUR ---
MS/RN ON INITIAL ROUNDING AT 1930, PATIENT WAS IN BED AWAKE, ALERT, ORIENTED, WITH C/O PAIN RT. ARM 12/24, MEDICATED WITH DILAUDID ORDERED, NO SIGNS OF DISTRESS NOTED, CALL LIGHT IN REACH. WILL MONITOR.
--- NOTE | 2019-01-14 00:12 | NUR ---
MS/RN PATIENT IS SLEEPING AT THIS TIME, APPEAR COMFORTABLE, NO DISTRESS NOTED, CALL LIGHT IN REACH. WILL CONTINUE TO MONITOR.
[2019-01-14] MEDS: IV NS 0.9% 1,000 ML IV PRN ×2 (02:24→11:35)
[2019-01-14] MEDS: HYDROMORPHONE 1 MG/1 ML DISP.SYRIN IV PRN ×3 (02:24→11:56)
--- NOTE | 2019-01-14 06:28 | NUR ---
MS/RN PATIENT IS AWAKE, COMFORTABLE, NO DISTRESS NOTED, CALL LIGHT IN REACH. ALL NEEDS ATTENDED AT THIS TIME, WILL CONTINUE TO MONITOR.
[2019-01-14 06:58] LABS: CALCIUM, SERUM 7.7 mg/dL (8.5-10.1); CREATININE 0.5 mg/dL (0.6-1.3); POTASSIUM 3.6 mmol/L (3.5-5.1)
[2019-01-14] MEDS: BLOOD SUGAR DIAGNOSTIC 1 EACH STRIP IN SCH ×3 (07:26→16:43)
--- NOTE | 2019-01-14 07:36 | NUR ---
M/S RN - Assessment Patient is awake in bed, A/O x 4, right shoulder incision pain managed with Dilaudid 1 mg IVP every 2 hours PRN, right sling in place, NWB on the RUE. RUE is warm to touch, sensation is intact. IVF NS at 100 ml/hr infusing well on the PHIL midline with no signs of infiltration. Labs reviewed, no critical values seen. Fall precautions maintained. Patient updated on plan of care. Will continue with current medical management.
[2019-01-14 08:00] VITALS: BP 120/76
[2019-01-14] MEDS: ALPRAZOLAM 1 MG TABLET PO SCH (08:04)
[2019-01-14] MEDS: DULOXETINE HCL 30 MG CAPSULE.DR PO SCH (08:04)
[2019-01-14] MEDS: INSULIN REGULAR, HUMAN 100 UNIT/ML 3 ML VIAL SQ PRN (11:34)
--- NOTE | 2019-01-14 11:35 | NUR ---
WOUND CARE CONSULT: PT PRESENTS WITH RASHES TO ABDOMINAL/GROIN FOLDS, SKIN TEAR WITH SOME HEALED AREAS TO RT HAND AND PAINFUL CALLUS TO LEFT HEEL, ALL PRESENT ON ADMISSION. DR LIZARRAGA AWARE OF DPM CONSULT REQUEST FOR HEEL. RECOMMENDATIONS MADE FOR WOUND CARE AND SKIN PROTECTION. DISCUSSED WITH NURSING STAFF. PT REFUSED TO TURN FOR FULL SKIN ASSESSMENT BUT CHELSEA SCORE IS CURRENTLY 18. WILL SEE PRN. BABB IN AGREEMENT WITH PLAN OF CARE. Addendum: 01/14/19 at 1137 by LAMONT LAMAS WND[facility] Amended: Links added.
[2019-01-14] MEDS ORDERED: HYDROCODONE/APAP 10/325MG 1 EA TABLET PO PRN (13:30)
[2019-01-14] MEDS ORDERED: NAPR-1164 PO (13:36)
[2019-01-14] MEDS ORDERED: HYDR-4354 PO (13:36)
[2019-01-14 16:00] VITALS: BP 112/84
[2019-01-14] MEDS ORDERED: CLOTRIMAZOLE 1% 15 GM TUBE TP SCH (17:00)
--- NOTE | 2019-01-14 18:33 | NUR ---
MS/RN - Discharge Patient is alert and oriented x 4, discharged home in stable condition, remain afebrile, denies pain, not in any form of distress, ambulatory, right arm sling in place. Reviewed discharge instructions with patient and he verbalized full understanding of all teachings including medications and follow up with PCP and Dr. Peterson within one week. Electronic prescription sent to his preferred pharmacy. Patient was advised to seek immediate medical attention for worsening symptoms, chest pain, shortness of breath, palpitations, abdominal pain or distention, intractable nausea and vomiting, diarrhea, hematochezia, melena, weakness, loss of consciousness, neurological deficit, or any other emergent concerns. All belongings with patient and he deny any missing items. Patient refused photos to be taken of skin. PHIL mid-line removed with catheter tip intact, no redness, no swelling noted at the site. Patient signed discharge paperwork and copies were given per protocol. Accompanied to the lobby via wheelchair and transported by private car.
== END 2019-01-14 18:49 | disposition home or self-care (01) | DRG 342 ==
LOC: ER 06:18 → MED 11:24
PROVIDERS: ADMIT Nurse Practitioner Acute Care; ATTEND Nurse Practitioner Acute Care
DX: S42.201A Unspecified fracture of upper end of right humerus, initial encounter for closed fracture (principal); I50.33 Acute on chronic diastolic (congestive) heart failure; M62.82 Rhabdomyolysis; E11.42 Type 2 diabetes mellitus with diabetic polyneuropathy; E66.01 Morbid (severe) obesity due to excess calories; E44.1 Mild protein-calorie malnutrition; Z68.43 Body mass index [BMI] 50.0-59.9, adult; S42.301A Unspecified fracture of shaft of humerus, right arm, initial encounter for closed fracture; W18.30XA Fall on same level, unspecified, initial encounter; Y92.89 Other specified places as the place of occurrence of the external cause; I11.0 Hypertensive heart disease with heart failure; F41.9 Anxiety disorder, unspecified; F17.210 Nicotine dependence, cigarettes, uncomplicated; B07.0 Plantar wart; B35.1 Tinea unguium; Z91.81 History of falling
CPT/HCPCS: 36415; 70450-TC; 71045-TC; 73030-TC; 80048-TC; 80053-TC; 80061-TC; 82550-TC; 82962-TC; 83735-TC; 83880; 84100-TC; 84443-TC; 84484-TC; 85025-TC; 87081-TC; 93307-TC; 97110-TC; 97116-TC; 97530-TC; A4565; G0378; J1170; J1815; J2270; J3475; J7030; J7040

== ENCOUNTER 2019-04-17 23:02 | Emergency (ER) | payer OTHER ==
[~2019-04-17] VITALS: Ht 168.9 cm; Wt 145.1 kg
[~2019-04-17 23:02] MED LIST changes: -BENA1TAB71 PO; -DICL75TA5; +GABA-534 PO; +HYDR-4354 PO; +MULT-447 PO; +NAPR-1164 PO
--- NOTE | 2019-04-17 23:36 | NUR ---
PT CAME TO ER BED 1 WITH C/O RIGHT HIP, RIGHT SHOULDER, AND RIGHT ELBOW PAIN S/P FALL. PT STATES HE WAS IN THE LIVING ROOM WHEN HE TRIPPED ON HIS BLANKET AND HIT HIS ELBOW ON HIS SPEAKERS AND HEARD A POP ON HIS SHOULDER. PATIENT ALSO HIT HIS RIGHT HIP. DENIES HITTING HEAD AND DENIES LOSING CONSCIOUSNESS. AAOX 4. NO SOB. BREATHING EVENLY AND UNLABORED. CONNECTED TO MONITOR.
--- NOTE | 2019-04-17 23:50 | NUR ---
SEEN AND EXAMINED BY DR. ALDANA.
[2019-04-17] MEDS ORDERED: HYDROCODONE/APAP 5/325MG 1 EACH TABLET ONE (23:59)
[2019-04-18] MEDS ORDERED: HYDROCODONE/APAP 5/325MG 1 EACH TABLET PO ONE
--- NOTE | 2019-04-18 00:17 | NUR ---
PATIENT TAKEN TO CT.
--- NOTE | 2019-04-18 03:22 | NUR ---
Patient discharged to home in stable condition. Written and verbal after care instructions given. Patient verbalizes understanding of instruction.
[2019-04-18 03:23] VITALS: BP 128/64
== END 2019-04-18 03:27 | disposition home or self-care (01) ==
LOC: ER 23:05
DX: M25.511 Pain in right shoulder (principal); M25.551 Pain in right hip; E11.9 Type 2 diabetes mellitus without complications; I10 Essential (primary) hypertension; G89.29 Other chronic pain; F17.200 Nicotine dependence, unspecified, uncomplicated; Z98.890 Other specified postprocedural states; Z79.899 Other long term (current) drug therapy; Z79.84 Long term (current) use of oral hypoglycemic drugs; W01.0XXA Fall on same level from slipping, tripping and stumbling without subsequent striking against object, initial encounter; Y93.89 Activity, other specified; Y92.89 Other specified places as the place of occurrence of the external cause; Y99.8 Other external cause status
CPT/HCPCS: 72220-TC; 73030-TC; 73502

== ENCOUNTER 2021-08-25 22:29 | Emergency (ER) | payer OTHER ==
[~2021-08-25] VITALS: Ht 167.6 cm; Wt 151.5 kg
--- NOTE | 2021-08-26 00:45 | NUR ---
T[facility] ER BED 4. BIBSELF C/O RIGHT SHOULDER AND ELBOW INJURY X 2 WEEKS S/P GLF. BRUISING AND DEFORMITY NOTED. DENIES ANY CHEST PAIN. NOT IN RESPIRATORY DISTRESS. CONNECTED TO MONITOR. AWAITING MD PARADA
[2021-08-26] MEDS ORDERED: HYDROCODONE/APAP 5/325MG TABLET ONE (00:57)
[2021-08-26] MEDS ORDERED: HYDROCODONE/APAP 5/325MG TABLET PO ONE (01:00)
--- NOTE | 2021-08-26 01:00 | NUR ---
PATIENT EXPERIENCE COORDINATOR AT PT'S BEDSIDE
[2021-08-26] MEDS ORDERED: HYDR-4275 PO (01:46)
--- NOTE | 2021-08-26 02:12 | NUR ---
Patient discharged to home in stable condition. Written and verbal after care instructions given. Patient verbalizes understanding of instruction.
[2021-08-26 02:22] VITALS: BP 112/70
== END 2021-08-26 02:23 | disposition home or self-care (01) ==
LOC: ER 22:32
DX: S52.021A Displaced fracture of olecranon process without intraarticular extension of right ulna, initial encounter for closed fracture (principal); S42.201G Unspecified fracture of upper end of right humerus, subsequent encounter for fracture with delayed healing; I10 Essential (primary) hypertension; G89.29 Other chronic pain; E11.9 Type 2 diabetes mellitus without complications; F17.200 Nicotine dependence, unspecified, uncomplicated; Z87.19 Personal history of other diseases of the digestive system; Z79.899 Other long term (current) drug therapy; W01.0XXA Fall on same level from slipping, tripping and stumbling without subsequent striking against object, initial encounter; Y93.89 Activity, other specified; Y92.89 Other specified places as the place of occurrence of the external cause; Y99.8 Other external cause status
CPT/HCPCS: 73030-TC; 73080-TC